=== PATIENT | female | born 1965 | race Caucasian/White ===

== ENCOUNTER → 2019-11-25 11:18 | Outpatient (CLI) | payer MEDICARE | END | disposition home or self-care (01) | LOC: D.CT 11:18 | PROVIDERS: ATTEND Family Medicine | DX: I73.9 Peripheral vascular disease, unspecified (principal); M79.605 Pain in left leg; M79.604 Pain in right leg ==

== ENCOUNTER 2020-05-13 08:06 | Day surgery (SDC) | payer MEDICARE ==
--- NOTE | 2020-04-17 14:44 | NUR ---
SPOKE WITH PT TO CONFIRM APPT ON MONDAY. PT STATES LONG THE WEATHER IS OK, SHE WILL BE HERE. PT CONFIRMED NPO, ARRIVAL TIME, MERCHANDISE ASSOCIATE, AND THAT SHE IS TO CONTINUE HER ASA PER DR CHEEK.
--- NOTE | 2020-05-12 11:25 | NUR ---
CONFIRMED WITH PT NPO AFTER MIDNIGHT; PT WAS TOLD TO CONTINUE HER ASA WITH THIS PROCEDURE. PT DOES HAVE PHARMACY TECHNOLOGIST POST PROCEDURE. PT STATES ARRIVAL TIME OF 0730.
[~2020-05-13] VITALS: Ht 172.7 cm; Wt 109.1 kg
--- NOTE | ~2020-05-13 | HEMODYNAMI ---
PATIENT:CASSIDY REESE MEDICAL RECORD: [id number] : 61 [id number] ADMISSION DATE: 05/13/20 Generatedon:113:21 Patient name: CASSIDY REESE Patient #: [id number] SSN: : 1965 Date of study: 05/13/2020 Page: Of Hemodynamic Procedure Report Patient Data Patient Demographics Procedure consent was obtained First Name: CASSIDY Gender: Female Last Name: MARY ANN : 1965 Patient #: [id number] Age: 54 year(s) Race: Unknown Additional ID: [id number] Contact details [address]: [address] [place] [address] State: [place] City: [place] Zip code: [address] Admission Admission Data Admission Date: 05/13/2020 Admission Time: 8:06 Procedure Procedure Types Cath Procedure Peripheral Cath Diagnostic Procedure Venography Extremity Procedure Description Procedure Date Procedure Date: 05/13/2020 Procedure Start Time: 11:05 Procedure Staff Name Function Yony Palacios MD Performing Physician Percy Garay RT Monitor VINI BARRAZA RT Scrub Gladis Castaneda RN Nurse Sharyn Crouch RN Nurse Procedure Data Cath Procedure Fluoroscopy Diagnostic fluoroscopy Total fluoroscopy Time: time: 33.9 min 33.9 min Diagnostic fluoroscopy Total fluoroscopy dose: 389 dose: 389 mGy mGy Contrast Material Contrast Material Type Amount (ml) Isovue 300 140 Procedure Medications Medication Administration Route Dosage Heparin Flush Bag added to field 3 bags (1000units/500ml NS) Lidocaine 1% added to field 20 Versed I.V. 1 mg Fentanyl I.V. 50 mcg Heparin Bolus I.V. 6000 units Fentanyl I.V. 25 mcg Versed I.V. 0.5 mg Heparin Bolus I.V. 2000 units Fentanyl I.V. 25 mcg Versed I.V. 0.5 mg Versed I.V. 0.5 mg Fentanyl I.V. 25 mcg Nitroglycerin IC/IA I.A. 300 mcg Fentanyl I.V. 25 mcg Versed I.V. 0.5 mg Hemodynamics Rest Heart Rate: 60 (bpm) Snapshots Pre Cath Intra NCS Post Cath Vital Signs Time Heart Resp SPO2 etCO2 NIBP (mmHg) Rhythm Pain Sedation Rate (ipm) (%) (mmHg) Status Level (bpm) 10:10:20 60 13 100 37.7 152/72(105) NSR 0 (11) 10(A) , No pain 10:14:36 61 9 38.5 142/76(105) NSR 0 (11) 10(A) , No pain 10:18:54 62 10 40 158/77(120) NSR 0 (11) 10(A) , No pain 10:23:18 62 13 77 21.1 142/76(93) NSR 0 (11) 10(A) , No pain 10:27:36 60 7 39.2 142/75(103) NSR 0 (11) 10(A) , No pain 10:32:35 60 12 38.5 Measuring NSR 0 (11) 10(A) , No pain 10:32:45 60 11 39.2 149/70(93) NSR 0 (11) 10(A) , No pain 10:37:10 61 11 37.7 119/62(80) NSR 0 (11) 10(A) , No pain 10:41:30 58 9 39.2 80/52(61) NSR 0 (11) 10(A) , No pain 10:46:27 58 11 36.2 149/65(92) NSR 0 (11) 10(A) , No pain 10:51:22 60 9 38.5 111/85(105) NSR 0 (11) 10(A) , No pain 10:56:21 60 13 100 40.7 Measuring NSR 0 (11) 10(A) , No pain 10:56:27 61 13 100 40 152/72(111) NSR 0 (11) 10(A) , No pain 11:00:51 60 11 100 40.7 141/77(117) NSR 0 (11) 10(A) , No pain 11:05:07 61 23 98 40.7 154/77(120) NSR 0 (11) 10(A) , No pain 11:09:27 58 51 29.4 129/71(98) NSR 0 (11) 8(A) , No pain 11:13:37 59 13 99 42.2 130/70(95) NSR 0 (11) 8(A) , No pain 11:17:51 60 13 100 43 126/68(90) NSR 0 (11) 8(A) , No pain 11:22:05 59 10 100 44.5 132/67(90) NSR 0 (11) 8(A) , No pain 11:26:19 61 34 44.5 141/68(96) NSR 0 (11) 8(A) , No pain 11:30:37 61 9 100 42.9 142/67(107) NSR 0 (11) 8(A) , No pain 11:34:55 60 21 43.7 150/69(113) NSR 0 (11) 8(A) , No pain 11:39:15 59 45 42.2 137/67(93) NSR 0 (11) 8(A) , No pain 11:43:27 60 9 40.7 137/69(98) NSR 0 (11) 8(A) , No pain 11:47:47 59 12 45.3 139/61(111) NSR 0 (11) 8(A) , No pain 11:52:06 56 12 98 42.9 136/69(101) NSR 0 (11) 8(A) , No pain 11:56:24 60 13 99 40.7 131/64(97) NSR 0 (11) 8(A) , No pain 12:00:50 57 24 97 40.7 67/39(50) NSR 0 (11) 8(A) , No pain 12:05:49 58 11 99 43 Measuring NSR 0 (11) 8(A) , No pain 12:06:06 57 7 100 43 145/62(110) NSR 0 (11) 8(A) , No pain 12:10:27 57 10 99 40 144/67(96) NSR 0 (11) 8(A) , No pain 12:14:50 58 12 98 41.4 141/65(113) NSR 0 (11) 8(A) , No pain 12:19:10 60 12 97 42.9 140/67(96) NSR 0 (11) 8(A) , No pain 12:24:09 62 23 96 40.7 Measuring NSR 0 (11) 8(A) , No pain 12:24:32 60 21 97 39.9 143/72(93) NSR 0 (11) 8(A) , No pain 12:28:52 58 58 99 36.2 144/70(125) NSR 0 (11) 8(A) , No pain 12:33:12 59 13 98 42.9 135/70(93) NSR 0 (11) 8(A) , No pain 12:37:30 59 25 99 40.7 137/66(88) NSR 0 (11) 8(A) , No pain 12:42:29 60 32 100 42.9 Measuring NSR 0 (11) 8(A) , No pain 12:43:45 61 20 97 25.5 Disturbed NSR 0 (11) 8(A) , No pain 12:45:29 58 16 98 38.4 85/66(74) NSR 0 (11) 8(A) , No pain 12:48:42 60 15 42.1 148/80(97) NSR 0 (11) 8(A) , No pain 12:53:06 62 19 27.8 150/70(101) NSR 0 (11) 8(A) , No pain 12:57:30 61 32 99 38.4 145/70(80) NSR 0 (11) 8(A) , No pain 13:01:38 62 24 99 33.1 142/84(96) NSR 0 (11) 8(A) , No pain 13:06:06 65 14 99 40.6 156/56(97) NSR 0 (11) 8(A) , No pain 13:10:26 62 39 99 21 138/85(95) NSR 0 (11) 8(A) , No pain 13:14:38 62 21 97 31.6 123/67(71) NSR 0 (11) 8(A) , No pain 13:19:37 61 8 99 39.9 Measuring NSR 0 (11) 8(A) , No pain 13:19:45 62 8 100 24.1 135/77(94) NSR 0 (11) 8(A) , No pain Medications Time Medication Route Dose Verified Delivered Reason Notes Effec tiveness by by 11:04:02 Heparin Flush added 3 Yony Bhakta used for Bag to bags Philip Palacios MD procedure (1000units/500ml field DOMINGUEZ NS) 11:04:15 Lidocaine 1% added 20ml Yony Bhakta used for to vial Philip Palacios MD procedure field MD 11:07:35 Versed I.V. 1 mg Yony Coles for Pama Miko sedation RN 11:07:48 Fentanyl I.V. 50 Yony Coles for mcg Pama Miko sedation RN 11:33:11 Heparin Bolus I.V. 6000 Yony Coles used for units BurdaMiko procedure RN 11:39:35 Fentanyl I.V. 25 Yony Coles for mcg Burda Miko sedation RN 11:39:46 Versed I.V. 0.5 Yony Coles for mg Burda Miko sedation RN 12:27:57 Heparin Bolus I.V. 2000 Yony oCles used for units PamaMiko procedure RN 12:28:08 Fentanyl I.V. 25 Yony Coles for mcg Burda, Miko sedation RN 12:28:18 Versed I.V. 0.5 Yony Albertah for mg Burda Miko sedation RN 12:51:42 Versed I.V. 0.5 Yony Coles for mg Burda Miko sedation RN 12:51:52 Fentanyl I.V. 25 Yony Coles for mcg Pama Miko sedation RN 13:06:24 Nitroglycerin I.A. 300 Yony Yony used for IC/IA mcg Philip Palacios MD procedure MD 13:08:25 Fentanyl I.V. 25 Yony Coles for mcg Pama Miko sedation RN 13:08:37 Versed I.V. 0.5 Yony Coles for mg Drew Palaciosrary sedation [employer] professional Log Time Note 9:54:44 Percy Garay RT (R) (CV) sent for patient. Start room use. 9:54:51 Time tracking: Regular hours (M-F 7:00 - 5:00) 9:54:58 Plan of Care:Hemodynamics will remain stable., Cardiac rhythm will remain stable., Comfort level will be maintained., Respiratory function will remain adequate., Patient/ family verbilizes understanding of procedure., Procedure tolerated without complication., Recovers from procedure without complications.. 9:55:04 Use device set IR Diagnostic 9:55:05 Tegaderm 4 x 4 (1626W) opened to sterile field. 9:55:06 Sterile Angiographic Pack opened to sterile field. 9:55:07 Bag Decanter (2001S) opened to sterile field. 9:55:07 ACIST Manifold (50672) opened to sterile field. 9:55:08 ACIST Hand Control (72250) opened to sterile field. 9:55:09 ACIST Syringe (71157) opened to sterile field. 9:55:39 Patient received from Outpatients to IR Alert and oriented. Tansferred to table in Supine position. 9:55:42 Signed procedure consent form obtained from patient. 9:55:43 Correct patient and procedure confirmed by team. 9:55:45 Full Disclosure recording started 9:55:45 - 9:55:50 H&P Date Dictated: 05/13/2020 H&P Addendum completed by physician on day of procedure. (MUST COMPLETE FOR ALL OUTPATIENTS). 9:55:54 Pre-procedure instructions explained to patient. 9:55:54 Pre-op teaching completed and patient verbalized understanding. 9:55:57 Family unavailable. 9:55:59 Patient NPO since Midnight. 9:56:07 Is the patient allergic to Iodine/contrast media? No. 9:56:14 Is patient on blood thinner?Yes 9:56:17 ACC The patient was administered the following blood thiners within the last 24 hours: ACCAspirin 9:56:25 Patient diabetic? No. 9:56:27 - 9:56:36 ----Pre-sedation anethsthesia assessment.---- 9:56:43 Previous problem with sedation/anesthesia? No ? 9:56:44 Snore? Yes 9:56:46 Sleep apnea? No 9:56:48 Deviated septum? No 9:56:49 Opens mouth fully? Yes 9:56:50 Sticks out tongue? Yes 9:56:53 Airway obstruction? No ? 9:56:57 Dentures? Yes in 10:02:59 Pre procedure: right dorsailis pedis pulse Doppler 10:03:02 Pre procedure: left dorsailis pedis pulse Doppler 10:03:05 Pre procedure: right posterior tibial pulse Doppler 10:03:08 Pre procedure: left posterior tibial pulse Doppler 10:08:58 ECG and BP/O2 sat monitors applied to patient. 10:08:58 Vital chart was started 10:08:59 Baseline sample Acquired. 10:14:44 IV patent on arrival in left forearm with 0.9% NaCl at [facility]. 10:14:46 Alarms reviewed by R. N. 10:14:46 Sharps counted by scrub and verified by R.N. 10:14:55 Right groin area was prepped with chlora-prep and draped in sterile fashion 10:56:49 1) 90+ Normal kidney functon but urine findings or structural abnormalities or genetic trait point to kidney disease. 10:57:17 Maximum allowable contrast dose (3.7 X eGFR X 0.75)249.75 ml. 11:04:02 Heparin Flush Bag (1000units/500ml NS) 3 bags added to field was administered by Yony Palacios MD; used for procedure; Verbal order read back and verified. 11:04:15 Lidocaine 1% 20ml vial added to field was administered by Yoyn Palacios MD; used for procedure; Verbal order read back and verified. 11:05:11 Physician arrived 11:05:11 --------ALL STOP TIME OUT------ 11:05:12 Final Timeout: patient, procedure, and site verified with staff and physician. All members of the team are in agreement. 11:05:13 Right groin site verified by team. 11:05:16 Fire Safety Assessment: A--An alcohol-based skin anteseptic being used preoperatively., C--Open oxygen or nitrous oxide is being used. 11:05:33 Sedation plan: IV Moderate Sedation Medication:Versed, Fentanyl 11:05:40 Procedure started. 11:05:43 Local anesthetic to right femoral artery with Lidocaine 1% by Yony Palacios MD.INITIAL ACCESS ONLY 11:05:53 TUBING Contrast Injection High Pressure (YJS423L) opened to sterile field. 11:05:53 DOUBLE ENDED GUIEDWIRE DOC 145CM (G50816) opened to sterile field. 11:05:53 GLIDE WIRE ANGLE 180cm (SW8528) opened to sterile field. 11:05:54 Micropuncture VSI 4FR kit opened to sterile field. 11:05:54 SHEATH 5FR [place] (HXC167) opened to sterile field. 11:05:55 ROSE 260 wire (Q27722) opened to sterile field. 11:05:55 Angiodynamics Omniflush 5Fr 65cm (35587939) opened to sterile field. 11:05:55 GLIDE CATHETER 5FR ANGLED 65cm (CG507) opened to sterile field. 11:05:56 GLIDE WIRE ANGLE 260cm (CS8964) opened to sterile field. 11:07:31 CXI SUPPORT .035 135 CM STR catheter (M73092) opened to sterile field. 11:07:35 Versed 1 mg I.V. was administered by Sharyn Crouch RN; for sedation; Verbal order read back and verified. 11:07:48 Fentanyl 50 mcg I.V. was administered by Sharyn Crouch RN; for sedation; Verbal order read back and verified. 11:12:07 AMPLATZ Super Stiff 75cm wire ([id number]) opened to sterile field. 11:28:16 SHEATH DESTINATION 6FR X 65CM (RSP01) opened to sterile field. 11:28:16 CHOICE PT Extra Support J 300cm guide wire (5452848Y2) opened to steril e field. 11:29:11 INFLATOR BasixTOUCH (NC7897) opened to sterile field. 11:33:11 Heparin Bolus 6000 units I.V. was administered by Sharyn Crouch RN; used for procedure; Verbal order read back and verified. 11:34:18 ROADRUNNER .035 260 glide wire (H88680) opened to sterile field. 11:36:37 GUIDEWIRE V-18 CONTROL ([id number]) opened to sterile field. 11:39:35 Fentanyl 25 mcg I.V. was administered by Sharyn Crouch RN; for sedation; Verbal order read back and verified. 11:39:46 Versed 0.5 mg I.V. was administered by Sharyn Crouch RN; for sedation; Verbal order read back and verified. 11:47:28 GLIDE CATHETER 5FR ANGLED 100cm (CG508) opened to sterile field. 12:05:39 Trailblazer 0.035 135cm catheter ([id number]) opened to sterile field. 12:11:23 GUIDEWIRE V-18 CONTROL ([id number]) opened to sterile field. 12:20:03 [place] Catheter Standard (QBLZF746) opened to sterile field. 12:25:42 CHOICE PT Extra Support J 300cm guide wire ([id number]) opened to steril e field. 12:26:08 Inflate balloon Inflation number: 1 A [place] 3 x 8 x 135 Balloon ([id number]) was prepped and advanced across the Undefined1 , then inflated to 0 MINOR for 0:00 (min:sec) . 12:27:57 Heparin Bolus 2000 units I.V. was administered by Sharyn Crouch RN; used for procedure; Verbal order read back and verified. 12:28:08 Fentanyl 25 mcg I.V. was administered by Sharyn Crouch RN; for sedation; Verbal order read back and verified. 12:28:18 Versed 0.5 mg I.V. was administered by Sharyn Crouch RN; for sedation; Verbal order read back and verified. 12:34:02 SPIDER EMBOLIC PROTECTION DEVICE 5MM ([id number]) opened to sterile field. 12:35:54 Hawkone Medium Atherectomy System (H1-M) opened to sterile field. 12:49:02 Inflate balloon Inflation number: 2 A IN.PACT Admiral 5 x 150 x 130 DCB balloon ([id number]) was prepped and advanced across the Undefined1 , then inflated to 0 MINOR for 0:00 (min:sec) . 12:50:20 SHEATH 6FR [place] (BXS033) opened to sterile field. 12:51:42 Versed 0.5 mg I.V. was administered by Sharyn Crouch RN; for sedation; Verbal order read back and verified. 12:51:52 Fentanyl 25 mcg I.V. was administered by Sharyn Crouch RN; for sedation; Verbal order read back and verified. 13:06:24 Nitroglycerin IC/IA 300 mcg I.A. was administered by Yony Palacios MD; used for procedure; Verbal order read back and verified. 13:08:25 Fentanyl 25 mcg I.V. was administered by Sharyn Crouch RN; for sedation; Verbal order read back and verified. 13:08:37 Versed 0.5 mg I.V. was administered by Sharyn Crouch RN; for sedation; Verbal order read back and verified. 13:12:00 ANGIOSEAL-VIP PLUS 6 FR opened to sterile field. 13:12:32 Procedure ended.(Physican Out) 13:12:37 Fluoroscopy time 33.90 minutes. 13:12:45 Fluoroscopy dose: 389 mGy 13:12:45 Flurop Dose total: 389 13:12:54 Contrast amount:Isovue 300 140ml. 13:12:56 Sharps counted by scrub and verified by R.N. 13:12:57 Insertion/operative site no bleeding no hematoma. 13:13:00 Post-op/insertion site Right Femoral artery dressed using a 4 x 4 and Tegaderm. 13:13:03 Post right femoral artery:stable 13:13:05 Post Procedure Pulses reassessed and unchanged 13:13:07 Post procedure instruction explained to patient.Patient verbalizes understanding. 13:13:08 Procedure and supply charges have been captured, reviewed, submitted an d are correct. 13:21:17 Report given to Outpatients. 13:21:20 Patient transfered to Outpatients with Stretcher. 13:21:49 Vital chart was stopped Intervention Summary Intervention Notes Time ActionType Lesion and Equipment Used Action# Pressure Duration Attributes 12:26:08 Inflate Undefined1 Evercross 3 x 8 1 0 00:00 balloon x 135 Balloon ([id number]) 12:49:02 Inflate Undefined1 IN.PACT Admiral 2 0 00:00 balloon 5 x 150 x 130 DCB balloon ([id number]) Device Usage Item Name Manufacture Quantity Catalog Number [facility] Part [facility] nt Minimal Lot# / Charge Number Stock Stock Serial# Code Tegaderm 4 x 4 3M 1 1626W [id number] 03631 9 5 (1626W) Sterile Cardinal 1 [id number] 734797 59830 0 5 Angiographic Health Pack Bag Decanter Microtek 1 2001S 072678 11825 61728 4 5 (2001S) Medical Inc. ACIST Manifold Acist Medical 1 35450 018327 959048 27690 4 5 (31986) Systems Inc ACIST Hand Acist Medical 1 03462 549488 337508 13653 9 5 Control (60043) Systems Inc ACIST Syringe Acist Medical 1 02587 995449 852923 28545 8 20 (24587) Systems Inc TUBING Contrast [facility] Medical 1 RLL613C 310396 452693 08998 6 5 Injection High Pressure (WVJ424Q) DOUBLE ENDED [facility] 1 G92747 983854 74231 1 1 [id number] GUIEDWIRE DOC 145CM (E03799) GLIDE WIRE Terumo 1 KN4707 388513 437010 78843 1 5 ANGLE 180cm (LT4326) Micropuncture VSI VASCULAR 1 7266V 015163 75861 2 5 VSI 4FR kit SOLUTIONS SHEATH 5FR Terumo 1 WDT441 833587 418537 31874 0 5 [place] (SKR894) ROSE 260 wire Cook Medical 1 K61634 807044 129441 61531 8 5 34991645 (E85121) Angiodynamics Angiodynamics 1 34985587 748005 498677 85945 2 5 Omniflush 5Fr 65cm (41595629) GLIDE CATHETER Terumo 1 CG507 845794 42942 3 5 5FR ANGLED 65cm (CG507) GLIDE WIRE Terumo 1 VA8575 151764 552327 12412 5 5 ANGLE 260cm (VZ3097) CXI SUPPORT [employer] 1 I65082 518322 452650 09617 6 5 [id number] .035 135 CM STR catheter (L95724) AMPLATZ Super [place] 1 [id number] 268598 471318 36819 6 5 [id number] Stiff 75cm wire Scientific ([id number]) SHEATH Terumo 1 RSP01 647073 72293 47620 3 1 DESTINATION 6FR X 65CM (RSP01) CHOICE PT Extra [place] 2 [id number] 166019 20180904 61051 1 5 [id number] Support J 300cm Scientific [id number] guide wire (2431541G4) INFLATOR [facility] Medical 1 BD6971 405933 936833 81141 7 5 BasixTOUCH (OT2983) ROADRUNNER .035 [employer] 1 Q82739 108172 097415 66222 1 5 [id number] 260 glide wire (G36632) GUIDEWIRE V-18 [place] 2 055807 328087 62084 2 1 [id number] CONTROL Scientific [id number] ([id number]) GLIDE CATHETER Terumo 1 CG508 158076 74895 83688 3 4 5FR ANGLED 100cm (CG508) Trailblazer Medtronic 1 ASC-035-135 151906 84913 25911 6 5 0.035 135cm catheter ([id number]) Viance Crossing Medtronic 1 VNC-SD-150 092631 598471 46130 0 5 Catheter Standard (YNFTS156) Evercross 3 x 8 Medtronic 1 [id number] 104138 308869 25037 3 5 T990617 x 135 Balloon ([id number]) SPIDER EMBOLIC Medtronic 1 QBM1-OH-452-320 580199 96867 8 5 PROTECTION DEVICE 5MM ([id number]) Hawkone Medium Medtronic 1 H1-M 694513 38403 931 5 [id number] Atherectomy System (H1-M) IN.PACT Admiral Medtronic 1 [id number] 305779 1419091 18008 0 5 5 x 150 x 130 DCB balloon ([id number]) SHEATH 6FR Terumo 1 JHV980 793342 384388 17756 8 40 [place] (VRF892) AN[facility]IOSEAL[facility] 1 621514 683694 061113 76692 4 5 [id number] PLUS 6 FR Signature Audit [place] Stage Time Signature Unsigned Intra-Procedure 05/13/2020 Percy 1:21:45 PM [place] RT (R) (CV) [facility] [address] [place] [address]
[2020-05-13 08:37] LABS: CALC OSMOLALITY 279 mosm/kg (275-300); CALCIUM 9.1 mg/dL (8.5-10.1); CARBON DIOXIDE 33.5 mmol/L (21.0-32.0); CHLORIDE - SERUM 105 mmol/L (98-107); CREATININE - SERUM 0.6 mg/dL (0.6-1.3); GLUCOSE 96 mg/dL (74-106); POTASSIUM - SERUM 4.3 mmol/L (3.5-5.1); SODIUM 141 mmol/L (136-145); UREA NITROGEN 11 mg/dL (7-18); eGFR NON AFRICAN AMERICAN > 90 mL/min (90-120)
[2020-05-13 08:39] LABS: APTT 30.1 SECONDS (22.8-39.4); INR 1.08 (0.85-1.17)
[2020-05-13] MEDS ORDERED: ALBUTEROL SULF8.5 GM INH (08:42)
[2020-05-13] MEDS ORDERED: BACLOFEN10 MG PO (08:42)
[2020-05-13] MEDS ORDERED: KLONOPIN0.5 MG PO (08:42)
[2020-05-13] MEDS ORDERED: HYDROCODON-ACE1 EA10 PO (08:43)
[2020-05-13] MEDS ORDERED: CYMBALTA20 MG PO (08:43)
[2020-05-13] MEDS ORDERED: VITAMIN D325 MC1 PO (08:44)
[2020-05-13] MEDS ORDERED: BENICAR20 MG PO (08:44)
[2020-05-13] MEDS ORDERED: BAYER CHEWABLE81 MG PO (08:44)
[2020-05-13] MEDS ORDERED: GLUCOSAMINE HC500 MG PO (08:45)
[2020-05-13 09:09] VITALS: Ht 172.7 cm; Wt 109.1 kg
[2020-05-13] MEDS ORDERED: GINKGO BILOBA120 MG PO (09:22)
[2020-05-13 09:27] LABS: BASOPHILS 0.7 % (0-2); EOSINOPHILS 3.7 % (0-7); HEMATOCRIT 44.3 % (36.0-48.0); HEMOGLOBIN 14.6 g/dL (12-16); IMMATURE GRANULOCYTES 0.4 % (0-5); LYMPHOCYTE ABS# 1.65 10x3/uL (1.18-3.74); LYMPHOCYTES 24.2 % (15-50); MCH 30.5 pg (26.0-34.0); MCV 92.5 fL (80.0-100.0); MEAN PLATELET VOLUME 10.2 fL (7.4-10.4); MONOCYTES 9.4 % (2-11); NEUTROPHILS 61.6 % (40-80); PLATELET COUNT 548 10x3/uL (130-400); RBC 4.79 10x6/uL (4.00-5.40); WBC 6.8 10x3/uL (4.8-10.8)
--- NOTE | 2020-05-13 13:52 | NUR ---
1340 RETURNED TO 2503, FAMILY AT SIDE, PT. THOMAS, TOLD TO REMAIN FLAT THIS FIRST HOUR, ICE CHIPS SERVED.
--- NOTE | 2020-05-13 14:00 | NUR ---
1355 GROIN SITE UNCHANGED SINCE RETURN TO ROOM, ICE CAP PLACED. LEFT FOOT WARM, RIGHT FOOT COOL.
--- NOTE | 2020-05-13 14:56 | NUR ---
1456 ROUNDS BY LIBBY, RADIOLOGY NURSE WHO GAVE POST CARE INSTRUCTIONS AND STATES SHE CALLED HER PLAVIX INTO HER PHARMACY.
== END 2020-05-13 16:10 | disposition home or self-care (01) ==
LOC: D.SP 08:06
PROVIDERS: ATTEND General Practice
DX: I70.212 Atherosclerosis of native arteries of extremities with intermittent claudication, left leg (principal); I70.92 Chronic total occlusion of artery of the extremities; Z72.0 Tobacco use